=== PATIENT | female | born 1950 | race Caucasian/White ===

== ENCOUNTER 2017-01-10 09:37 | Emergency (ER) | payer OTHER ==
[~2017-01-10] VITALS: Ht 167.6 cm; Wt 83.0 kg
--- NOTE | ~2017-01-10 | CT71 ---
[facility] A Service of [facility] RADIOLOGY TEXT RESULTS PATIENT: ROBERT WHITE LOCATION: [facility] : 54 UNIT #: [id number] AGE: [address]: Liseth Sanches APRN SEX: F ORDER DR: [id number] [facility] [address] [place], [place] [address] [id number] E MR#: [id number] Acc #: [id number] NAME: ROBERT WHITE : 1950 SEX: F STUDY DATE/TIME: 01/10/2017 11:16 UNIT: [facility] ROOM: STUDY DESCRIPTION: CT Head Wo Contrast Attending Physician: Liseth Sanches A.P.R.N. Ordering Physician: Paxton Rodriguez M.D. Primary Care Physician: Cristobal Knox M.D. MEDICAL IMAGING REPORT This report is preliminary unless electronic signature is present EXAM CT of the head without contrast INDICATIONS Fall today and had had headache. TECHNIQUE CT of the head was performed without contrast. This CT exam was performed with one or more of the following radiation dose reduction techniques: automatic exposure control, adjustment of mA and/or kV according to patient size, and iterative reconstruction. COMPARISON No comparisons are available. FINDINGS No evidence for intracranial hemorrhage, acute cortical based infarction, focal mass lesion or hydrocephalus. The included orbits are unremarkable. There is minimal mucosal thickening of the paranasal sinuses. A comminuted nasal bone fracture is noted. The calvaria is intact. IMPRESSION No acute intracranial abnormality. Nasal bone fracture. Dictated by... Rico Ybarra M.D. THIS IS AN ELECTRONICALLY VERIFIED REPORT Rico Ybarra M.D. at 01/11/2017 7:45 AM CHEPE/michael TD: 01/10/2017 17:46 [facility] A Service [facility] RADIOLOGY TEXT RESULTS PATIENT: ROBERT WHITE LOCATION: [facility] : [birth year] UNIT #: [id number] AGE: [address]: Liseth Sanches APRN SEX: F ORDER DR: JOB #: [id number] MEDICAL IMAGING REPORT Page 1 of 1 COPY
--- NOTE | ~2017-01-10 | CT52 ---
[facility] A Service of [facility] RADIOLOGY TEXT RESULTS PATIENT: ROBERT WHITE LOCATION: [facility] : [birth year] UNIT #: [id number] AGE: [address]: Liseth Sanches APRN SEX: F ORDER DR: [id number] [facility] [address] [place], [place] [address] [id number] E MR#: [id number] Acc #: [id number] NAME: ROBERT WHITE : 1950 SEX: F STUDY DATE/TIME: 01/10/2017 11:16 UNIT: [facility] ROOM: STUDY DESCRIPTION: CT Cervical Spine Wo Cont Attending Physician: Liseth Sanches A.P.R.N. Ordering Physician: Ed Duy Rodriguez M.D. Primary Care Physician: Cristobal Knox M.D. MEDICAL IMAGING REPORT This report is preliminary unless electronic signature is present EXAM CT cervical spine, without contrast, 01/10/2017, 1116 hours, HISTORY 66-year-old who tripped and fell, hitting face first on nose, face. Neck pain and tenderness today. COMPARISON None TECHNIQUE Thin cut axial noncontrasted images were obtained through the cervical spine. Sagittal and coronal reconstructions were performed. Total exam DLP for the cervical spine CT today is 348 mGy-cm. This CT exam was performed with one or more of the following radiation dose reduction techniques: automatic exposure control, adjustment of mA and/or kV according to patient size, and iterative reconstruction. FINDINGS Images through the posterior fossa are negative. There is no skull base fracture. The mastoid air cells are clear. The dens is intact. C1-2 articulation is normal. C2-3 demonstrates very minimal central disc bulge. No central canal or foraminal stenosis. C3-4 demonstrates mild uncovertebral spurring on the left with moderate facet hypertrophy on the left. No central canal or foraminal stenosis. C4-5 demonstrates mild facet hypertrophy on the right. There is no central canal or foraminal stenosis. C5-6 demonstrates left-sided uncovertebral spurring without central canal [facility] A Service of [facility] RADIOLOGY TEXT RESULTS PATIENT: ROBERT WHITE LOCATION: [facility] #: [id number] : 54 UNIT #: [id number] AGE: [address]: Liseth Sanches APRN SEX: F ORDER DR: or foraminal stenosis. C6-7 and C7-T1 are normal. IMPRESSION 1. No acute fracture or subluxation. 2. Degenerative disc disease and uncovertebral spurring at C5-C6. This appears chronic. Dictated by... Patty Colorado M.D. THIS IS AN ELECTRONICALLY VERIFIED REPORT Patty Colorado M.D. at 01/11/2017 9:11 AM OZ/michael TD: 01/10/2017 18:09 JOB #: [id number] MEDICAL IMAGING REPORT Page 1 of 1 COPY
--- NOTE | ~2017-01-10 | CT101 ---
[facility] A Service of [facility] RADIOLOGY TEXT RESULTS PATIENT: ROBERT WHITE LOCATION: [facility] : 54 UNIT #: [id number] AGE: [address]: Liseth Sanches APRN SEX: F ORDER DR: [id number] [facility] [address] [place], [place] [address] [id number] E MR#: [id number] Acc #: [id number] NAME: ROBERT WHITE : 1950 SEX: F STUDY DATE/TIME: 01/10/2017 11:16 UNIT: [facility] ROOM: STUDY DESCRIPTION: CT Maxillofacial Area Wo Cont Attending Physician: Liseth Sanches A.P.R.N. Ordering Physician: Ed Duy Rodriguez M.D. Primary Care Physician: Cristobal Knox M.D. MEDICAL IMAGING REPORT This report is preliminary unless electronic signature is present EXAM CT face 01/10/2017. INDICATIONS Patient tripped and fell today. Patient has frontal headache with nose and facial pain and tenderness. Patient hit face first. TECHNIQUE Axial images were obtained through the face without contrast. Multiplanar reformats were obtained. This CT exam was performed with one or more of the following radiation dose reduction techniques: automatic exposure control, adjustment of mA and/or kV according to patient size, and iterative reconstruction. COMPARISON No comparison facial bone CT. FINDINGS A depressed segmental left-sided nasal bone fracture is present. The bone is fractured in multiple locations. The fracture does extend up to the nasal bridge. There is overlying subcutaneous emphysema and soft tissue swelling. There is a nasal septal fracture, as well, in the anterior to middle third. These are displaced toward the left. No other acute facial bone fractures are seen. The temporomandibular joints demonstrate normal alignment. Dentition is poor with multiple periapical lucencies noted in the maxillary and mandibular teeth. Multiple dental cavities are present, as well. Additionally, there is an irregular lesion in the anterior mandible involving at least the left anterior mandibular incisor. This may reflect an odontogenic lesion. Dental followup is recommended. There is some chronic mucosal thickening in the right maxillary sinus that is mild. The right frontal sinus is not pneumatized. The globes are within normal limits. [facility]. [facility] A Service of [facility] RADIOLOGY TEXT RESULTS PATIENT: ROBERT WHITE LOCATION: [facility] : 54 UNIT #: [id number] AGE: [address]: Liseth Sanches [employer] SEX: F ORDER DR: IMPRESSION 1. Comminuted segmental depressed left-sided nasal bone fractures extending up into the nasal bridge. There is overlying soft tissue gas and soft tissue swelling. 2. Anterior to mid nasal septal fractures angulated to the left. 3. No other acute facial bone fractures are seen. 4. Poor dentition with multiple dental cavities and multiple periapical lucency noted. 5. Potential odontogenic lesion in the anterior mandible involving at least the left-sided mandibular incisor. Followup with dental exam is recommended. Dictated by... Peter Ames Jr., M.D. THIS IS AN ELECTRONICALLY VERIFIED REPORT Peter Ames Jr., M.D. at 01/11/2017 7:09 AM Jenniffer TD: 01/10/2017 18:50 JOB #: [id number] MEDICAL IMAGING REPORT Page 1 of 1 COPY
[~2017-01-10 09:37] MED LIST: ACTOS PO; CIPRO PO; GLUCOTROL PO; HUMULIN 70/30 V10 ML SUBQ; LIPITOR PO; LISINOPRIL PO; METFORMIN PO; PHENERGAN25 MG PO; UNKNOWN MED; VICODIN PO
== END 2017-01-10 14:19 | disposition home or self-care (01) ==
LOC: CED 09:37
DX: S02.2XXA Fracture of nasal bones, initial encounter for closed fracture (principal); S01.21XA Laceration without foreign body of nose, initial encounter; I10 Essential (primary) hypertension; E11.9 Type 2 diabetes mellitus without complications; W18.09XA Striking against other object with subsequent fall, initial encounter; Y92.488 Other paved roadways as the place of occurrence of the external cause
CPT/HCPCS: 12011; 70450; 70486; 72125; 99284